=== PATIENT | female | born 1970 | race Caucasian/White ===

== ENCOUNTER 2017-03-16 10:59 | Emergency (ER) | payer MEDICARE ==
[2017-03-16] MEDS ORDERED: Bacitracin Zinc 1 Packet ONE (12:09)
[2017-03-16] MEDS ORDERED: Sulfameth/Trimethoprim DS 800-160mg TAB ONE (12:17)
--- NOTE | 2017-03-16 18:43 | RAD ---
LEFT THUMB THREE VIEWS: Date: 03-16-17 FINDINGS: A soft tissue laceration is seen on the volar aspect of the thumb. No opaque foreign body or acute f racture was seen. A small piece of bone on the palmar aspect of the IP Joint is probably either an a ccessory ossicle or old injury. I doubt that it is related to current trauma. There may have been ol d trauma to the base of the first metacarpal and the distal portion of the scaphoid. Some cystic adonis nges are suggested in the scaphoid and the capitate. IMPRESSION: Laceration without acute bony findings. POS: HOME
== END 2017-03-16 12:22 | disposition home or self-care (01) ==
LOC: BURERS 10:59
DX: S61.012A Laceration without foreign body of left thumb without damage to nail, initial encounter (principal); F32.9 Major depressive disorder, single episode, unspecified; W31.2XXA Contact with powered woodworking and forming machines, initial encounter; Y92.009 Unspecified place in unspecified non-institutional (private) residence as the place of occurrence of the external cause
CPT/HCPCS: 12002; J2001

== ENCOUNTER 2017-06-02 12:17 | Emergency (ER) | payer MEDICARE ==
[2017-06-02] MEDS ORDERED: traMADol HCl 50 MG TAB ONE ×2 (12:49→12:50)
--- NOTE | 2017-06-02 17:01 | RAD ---
3 VIEW RIGHT ANKLE: Date: 06/02/17 Three views of the right ankle show lateral soft tissue swelling. No acute fracture was appreciated. There is some bony spurring at the talonavicular joint. The articular surfaces are smooth. IMPRESSION: Lateral swelling. POS: HOME
== END 2017-06-02 12:58 | disposition home or self-care (01) ==
LOC: BURERS 12:17
DX: S93.401A Sprain of unspecified ligament of right ankle, initial encounter (principal); F32.9 Major depressive disorder, single episode, unspecified; G47.00 Insomnia, unspecified; W17.2XXA Fall into hole, initial encounter

== ENCOUNTER 2017-10-04 16:40 | Emergency (ER) | payer MEDICARE | END 2017-10-04 17:14 | disposition home or self-care (01) | LOC: BURERS 16:40 | DX: L03.311 Cellulitis of abdominal wall (principal); F32.9 Major depressive disorder, single episode, unspecified; G47.30 Sleep apnea, unspecified; Z79.899 Other long term (current) drug therapy | CPT/HCPCS: 99283 ==

== ENCOUNTER 2018-01-18 11:39 | Emergency (ER) | payer MEDICARE | END 2018-01-18 12:28 | disposition home or self-care (01) | LOC: BURERS 11:39 | DX: L03.317 Cellulitis of buttock (principal); F32.9 Major depressive disorder, single episode, unspecified; G47.00 Insomnia, unspecified | CPT/HCPCS: 99283 ==

== ENCOUNTER 2019-01-13 09:56 | Outpatient (CLI) | payer MEDICARE ==
--- NOTE | 2019-01-13 11:33 | RAD ---
LEFT FOOT THREE VIEWS: History: Left foot pain. Tarsals appear intact. There are degenerative changes in the intertarsal joints with mild spurring se en from the tarsals. Mild degenerative changes at the tarsal metatarsal joints also noted. No acute f racture. The metatarsals and phalanges appear intact. The MTP and IP joints are unremarkable. IMPRESSION: There are degenerative changes involving the tarsals as described. No acute process. POS: [facility]
--- NOTE | 2019-01-13 11:33 | RAD ---
RIGHT WRIST THREE VIEWS: History: Wrist pain. FINDINGS: There is narrowing of the radial carpal joint with degenerative changes present. Widening of the scap holunate space indicates ligamentous injury. Subchondral cystic changes are seen at all carpals and d istal radius. Hypertrophic degenerative changes are present in the intercarpal joints. No acute fract ure apparent. 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 Consider further ev aluation with MRI. POS: [facility]
[2019-01-13 17:35] LABS: #Basophils 0.1 thou/uL (0.0-0.2); #Eosinphils 0.2 thou/uL (0.0-0.7); #Lymphocytes 1.9 thou/uL (1.20-3.40); #Monocytes 0.6 thou/uL (0.11-0.59); #Neutrophils 3.4 thou/uL (1.40-6.50); %Basophils 1.1 % (0.0-1.0); %Lymphocytes 29.9 % (21.0-51.0); Hemoglobin 13.9 g/dL (12.0-16.0); Mean Corpuscular HGB CONC 32.7 g/dL (32.0-36.0); Mean Corpuscular Hemoglobin 29.4 pg (27.0-31.0); Mean Corpuscular Volume 89.9 fL (78.0-98.0); Mean Platelet Volume 7.6 fL (7.4-10.4); Platelet Count 360 thou/uL (130-400); RBC Distribution Width 12.1 % (11.5-14.5); Red Blood Cell (RBC) Count 4.74 mill/uL (4.20-5.40); White Blood Cell (WBC) Count 6.2 thou/uL (4.8-10.8)
[2019-01-13 17:47] LABS: ALT (SGPT) 21 U/L (8-55); AST (SGOT) 23 U/L (5-34); Albumin 4.4 g/dL (3.5-5.0); Alkaline Phosphatase 75 U/L (40-150); Anion Gap 13 mmol/L (10-20); BUN (Urea Nitrogen) 18 mg/dL (7.0-18.7); Bilirubin, Total 0.4 mg/dL (0.2-1.2); Calc. Creatinine Clearance 0 mL/min (70-130); Calcium 10.2 mg/dL (7.8-10.44); Carbon Dioxide 28 mmol/L (22-29); Cardiac Risk 6.6 (Less than 4.5); Chloride 103 mmol/L (98-107); Cholesterol 321 mg/dl (< 200 Desired); Estimated GFR-MDRD 79; Globulin 2.9 g/dL (2.4-3.5); Glucose 97 mg/dL (70-105); HDL Cholesterol 49 mg/dL (>60 Neg Risk); LDL Cholesterol, Calculated 228 mg/dL; Potassium 4.5 mmol/L (3.5-5.1); Protein, Total 7.3 g/dL (6.0-8.3); Sodium 139 mmol/L (136-145); Triglycerides 220 mg/dL (Less than 150)
[2019-01-13 18:03] LABS: Free T4 (Free Thyroxine) 0.97 ng/dL (0.70-1.48); Thyroid Stimulating Hormone 0.3977 uIU/mL (0.35-4.94)
[2019-01-13 18:04] LABS: Vitamin D, 25 Hydroxy 40.6 ng/ml (> 30.0)
== END 2019-01-13 09:57 | disposition home or self-care (01) ==
LOC: BURRAD 09:56
PROVIDERS: ATTEND Family Medicine
DX: M25.531 Pain in right wrist (principal); M79.672 Pain in left foot; Z13.6 Encounter for screening for cardiovascular disorders; E03.9 Hypothyroidism, unspecified; E55.9 Vitamin D deficiency, unspecified; M19.072 Primary osteoarthritis, left ankle and foot; M19.031 Primary osteoarthritis, right wrist; M25.331 Other instability, right wrist
CPT/HCPCS: 36415; 80053; 80061; 82306; 84439; 84443; 85025

== ENCOUNTER 2019-09-16 11:19 | Emergency (ER) | payer MEDICARE ==
[2019-09-16] MEDS ORDERED: Bupivacaine 0.5% 10 ML VIAL ONE (11:27)
[2019-09-16] MEDS ORDERED: Silver Nitrate Application 1 EACH ONE (12:06)
[2019-09-16] MEDS ORDERED: HYDROcodone/Acetaminophen 5/325 mg Tablet ONE (12:17)
[2019-09-16] MEDS ORDERED: Ibuprofen 800 MG TAB ONE (12:17)
[2019-09-16] MEDS ORDERED: Cephalexin 250 MG CAP ONE (12:21)
== END 2019-09-16 12:45 | disposition home or self-care (01) ==
LOC: BURERS 11:19
DX: S68.120A Partial traumatic metacarpophalangeal amputation of right index finger, initial encounter (principal); F32.9 Major depressive disorder, single episode, unspecified; Z79.899 Other long term (current) drug therapy; W31.2XXA Contact with powered woodworking and forming machines, initial encounter
CPT/HCPCS: 11043; J3490

== ENCOUNTER 2022-06-10 12:02 | Emergency (ER) | payer MEDICARE, OTHER | END 2022-06-10 14:00 | disposition home or self-care (01) | LOC: BURERS 12:02 | DX: S09.90XA Unspecified injury of head, initial encounter (principal); S90.31XA Contusion of right foot, initial encounter; E03.9 Hypothyroidism, unspecified; Z79.899 Other long term (current) drug therapy; W19.XXXA Unspecified fall, initial encounter | CPT/HCPCS: 70450 ==

== ENCOUNTER 2022-07-31 18:18 | Emergency (ER) | payer OTHER | END 2022-07-31 19:08 | disposition home or self-care (01) | LOC: BURERS 18:18 | DX: S90.32XA Contusion of left foot, initial encounter (principal); E03.9 Hypothyroidism, unspecified; Z79.899 Other long term (current) drug therapy; W20.8XXA Other cause of strike by thrown, projected or falling object, initial encounter ==

== ENCOUNTER 2022-09-25 17:01 | Emergency (ER) | payer OTHER, MEDICARE | END 2022-09-25 18:11 | disposition home or self-care (01) | LOC: BURERS 17:01 | DX: S00.83XA Contusion of other part of head, initial encounter (principal); E03.9 Hypothyroidism, unspecified; J01.90 Acute sinusitis, unspecified; W01.10XA Fall on same level from slipping, tripping and stumbling with subsequent striking against unspecified object, initial encounter | CPT/HCPCS: 70450 ==

== ENCOUNTER 2022-10-05 11:31 | Emergency (ER) | payer MEDICARE ==
[2022-10-05 12:42] LABS: #Basophils 0.1 thou/uL (0.0-0.2); #Eosinphils 0.2 thou/uL (0.0-0.7); #Lymphocytes 1.3 thou/uL (1.20-3.40); #Neutrophils 8.8 thou/uL (1.40-6.50); %Basophils 0.8 % (0.0-1.0); %Eosinophils 2.1 % (0.0-10.0); %Monocytes 8.8 % (0.0-10.0); %Neutrophils 77.3 % (42.0-75.0); Hemoglobin 13.4 g/dL (12.0-16.0); Mean Corpuscular Hemoglobin 30.5 pg (27.0-31.0); Mean Corpuscular Volume 89.8 fl (78.0-98.0); Mean Platelet Volume 7.1 fL (7.4-10.4); Platelet Count 286 10x3/uL (130-400); RBC Distribution Width 11.7 % (11.5-14.5); Red Blood Cell (RBC) Count 4.41 mill/uL (4.20-5.40); White Blood Cell (WBC) Count 11.4 10x3/uL (4.8-10.8)
[2022-10-05 12:45] LABS: Bilirubin Negative (Negative); Blood, Urine Moderate (Negative); Clarity Slightly Cloudy (Clear); Glucose, Urine (Dipstick) Negative (Negative); Ketone, Urine Negative (Negative); Leukocyte Trace (Negative); Nitrite Negative (Negative); Protein, Urine (Dipstick) Negative (Neg-Trace); Specific Gravity, Urine 1.025 (1.005-1.030); Urobilinogen 0.2 mg/dL (Less than 2); pH, Urine 5.5 (5.0-9.0)
[2022-10-05 12:55] LABS: Bacteria/HPF 1+ HPF (None Seen); Mucous/LPF 1+ LPF (<2+)
[2022-10-05 12:56] LABS: Calcium Oxalate Crystals 2+ HPF (None Seen)
[2022-10-05 13:01] LABS: ALT (SGPT) 29 U/L (8-55); AST (SGOT) 24 U/L (5-34); Albumin 4.2 g/dL (3.5-5.0); Alkaline Phosphatase 78 U/L (40-110); Anion Gap 12 mmol/L (10-20); BUN (Urea Nitrogen) 19 mg/dL (9.8-20.1); Bilirubin, Total 0.6 mg/dL (0.2-1.2); Calc. Creatinine Clearance 0 mL/min (70-130); Calcium 9.9 mg/dL (7.8-10.44); Carbon Dioxide 28 mmol/L (22-29); Chloride 105 mmol/L (98-107); Estimated GFR 81; Globulin 2.7 g/dL (2.4-3.5); Glucose 93 mg/dL (70-105); Potassium 4.1 mmol/L (3.5-5.1); Protein, Total 6.9 g/dL (6.0-8.3); Sodium 141 mmol/L (136-145)
[2022-10-05 13:10] LABS: Lipase 53 U/L (8-78)
[2022-10-05] MEDS ORDERED: cefTRIAXone\\ROCEPHIN 1 GM VIAL ONE (13:27)
[2022-10-05] MEDS ORDERED: Iopamidol 370 76% 100 ML VIAL ONE (15:19)
== END 2022-10-05 14:18 | disposition home or self-care (01) ==
LOC: BURERS 11:31
DX: N13.2 Hydronephrosis with renal and ureteral calculous obstruction (principal); N39.0 Urinary tract infection, site not specified; E03.9 Hypothyroidism, unspecified; E78.5 Hyperlipidemia, unspecified; Z79.899 Other long term (current) drug therapy
CPT/HCPCS: 74177; 80053; 81003; 81015; 83690; 85025; 87086; 96365; J0696; Q9967

== ENCOUNTER 2022-10-31 14:18 | Outpatient (CLI) | payer OTHER | END 2022-10-31 14:19 | disposition home or self-care (01) | LOC: BURCT 14:18 | PROVIDERS: ATTEND Family Medicine | DX: N13.2 Hydronephrosis with renal and ureteral calculous obstruction (principal) | CPT/HCPCS: 74176 ==

== ENCOUNTER 2023-09-22 16:38 | Emergency (ER) | payer MEDICARE ==
[2023-09-22] MEDS ORDERED: cefTRIAXone (ROCEPHIN) 1 GM VIAL ONE (16:57)
[2023-09-22] MEDS ORDERED: HYDROcodone/Acetaminophen 10/325 mg Tablet ONE (16:57)
== END 2023-09-22 17:31 | disposition home or self-care (01) ==
LOC: BURERS 16:38
DX: L02.211 Cutaneous abscess of abdominal wall (principal); L03.311 Cellulitis of abdominal wall; E03.9 Hypothyroidism, unspecified; I10 Essential (primary) hypertension
CPT/HCPCS: 10060; 96372; J0696

== ENCOUNTER 2024-12-04 15:17 | Emergency (ER) | payer MEDICARE ==
[2024-12-04] MEDS ORDERED: Bacitracin 1 PK ONE (15:37)
== END 2024-12-04 15:46 | disposition home or self-care (01) ==
LOC: BURERS 15:17
DX: S90.425A Blister (nonthermal), left lesser toe(s), initial encounter (principal); I10 Essential (primary) hypertension; X58.XXXA Exposure to other specified factors, initial encounter
CPT/HCPCS: 99283

== ENCOUNTER 2024-12-20 11:20 | Emergency (ER) | payer MEDICARE | END 2024-12-20 11:42 | disposition home or self-care (01) | LOC: BURERS 11:20 | DX: H60.502 Unspecified acute noninfective otitis externa, left ear (principal); E03.9 Hypothyroidism, unspecified; I10 Essential (primary) hypertension; Z79.899 Other long term (current) drug therapy | CPT/HCPCS: 99282 ==